=== PATIENT | female | born 1980 | race Caucasian/White ===

== ENCOUNTER 2016-11-14 10:47 | Emergency (ER) | payer BC ==
--- NOTE | ~2016-11-14 | CT71 ---
[facility] A Service of [facility] / [facility] RADIOLOGY TEXT RESULTS PATIENT: WOODY DIAZ LOCATION: [facility] : 84 UNIT #: [id number] AGE: [address]: Mabel Mcfadden MD SEX: F ORDER DR: [id number] [facility]. [place], [place] [address] [id number] MR#: [id number] #: [id number] NAME: WOODY DIAZ : 1980 SEX: F STUDY DATE/TIME: 11/14/2016 12:03 UNIT: [facility] ROOM: STUDY DESCRIPTION: CT Head Wo Contrast Attending Physician: Mabel Mcfadden M.D. Ordering Physician: Mabel Mcfadden M.D. Primary Care Physician: Ricardo Dwyer M.D. MEDICAL IMAGING REPORT This report is preliminary unless electronic signature is present EXAM CT brain without contrast media HISTORY Headache, dizziness and blurred vision since 11/10/2016. Hit head that day. TECHNIQUE Axial imaging of the brain was performed without contrast media. This CT examination was performed with one or more of the following radiation dose reduction techniques: automatic exposure control, adjustment of mA and/or kV according to patient size, and iterative reconstruction. FINDINGS Ventricular size and configuration is normal. No intra- or extraaxial mass lesions, fluid collections or mass effect are seen. No focal areas of low attenuation or evidence of acute intracranial hemorrhage. Skull base appears unremarkable. Mastoid air cells and the ear canals appear normal. The sinuses are unremarkable. No fractures are identified. CONCLUSION Normal noncontrast CT of the brain. Dictated by... Jas Gtz M.D. THIS IS AN ELECTRONICALLY VERIFIED REPORT Jas Gtz M.D. at 11/15/2016 7:27 AM TAYLER/paulette TD: 11/14/2016 14:22 JOB #: [id number] [facility] A Service [facility] RADIOLOGY TEXT RESULTS PATIENT: WOODY DIAZ LOCATION: [facility] : 84 UNIT #: [id number] AGE: [address]: Mabel Mcfadden MD SEX: F ORDER DR: MEDICAL IMAGING REPORT Page 1 of 1 COPY
[~2016-11-14 10:47] MED LIST: CYMBALTA PO; MARINA IUD; VICODIN 5/500 T1 TAB PO; ZOLOFT PO
== END 2016-11-14 13:00 | disposition home or self-care (01) ==
LOC: CED 10:47
DX: S00.03XA Contusion of scalp, initial encounter (principal); I10 Essential (primary) hypertension; F41.9 Anxiety disorder, unspecified; W22.03XA Walked into furniture, initial encounter; Y92.009 Unspecified place in unspecified non-institutional (private) residence as the place of occurrence of the external cause
CPT/HCPCS: 70450; 84703; 99284